=== PATIENT | male | born 1955 | race Caucasian/White ===

== ENCOUNTER 2025-06-07 16:21 | Emergency (ER) | payer SELFPAY ==
[2025-06-07 17:09] VITALS: BMI 25.7
[2025-06-07 17:27] LABS: GLUCOSE,RANDOM 193 mg/dL (74-106)
[2025-06-07 17:28] LABS: TOT PROT 7.7 g/dl (6.4-8.2)
[2025-06-07 17:29] LABS: CO2 24 mmol/L (21-32)
[2025-06-07 17:30] LABS: ALK PHOS 132 U/L (40-150)
[2025-06-07 17:33] LABS: SGOT/AST 167 U/L (5-34); SGPT/ALT 42 U/L (0-55)
[2025-06-07 17:34] LABS: CREATININE 0.62 mg/dL (0.55-1.3)
[2025-06-07] MEDS: ONDANSETRON 4 MG/2 ML VIAL IVPB ONE (17:50)
[2025-06-07] MEDS: LACTATED RINGERS SOLUTION 1000 ML INFUS.BAG IV ONE (17:50)
[2025-06-07 22:57] VITALS: BP 112/79; PULSE 56; RESP 16; TEMP 97.5
== END 2025-06-08 00:12 | disposition home or self-care (01) ==
LOC: JER 16:21
PROC: 3E033GC Introduction of Other Therapeutic Substance into Peripheral Vein, Percutaneous Approach (ICD-10-PCS; principal; 2025-06-07)
DX: R46.4 Slowness and poor responsiveness (principal); R23.0 Cyanosis; R40.0 Somnolence; T40.2X1A Poisoning by other opioids, accidental (unintentional), initial encounter
CPT/HCPCS: 36415; 71045-TC-FY; 80053; 80307; 83735; 84484; 99285-25